=== PATIENT | male | born 1970 | race Caucasian/White ===

== ENCOUNTER 2017-09-11 17:18 | Emergency (ER) | payer OTHER ==
[2017-09-11] MEDS ORDERED: Lidocaine 2% 5 ML SDV ONE (17:29)
[2017-09-11] MEDS ORDERED: Diphtheria,Pertussis(Acell),Tetanus Vaccine 0.5 ML SDV IM ONE (17:36)
[2017-09-11] MEDS ORDERED: Lidocaine 1% 20 ML MDV ONE (17:41)
--- NOTE | 2017-09-11 17:57 | EDM.PDOC ---
ED HPI GENERAL MEDICAL PROBLEM - General Chief Complaint: Skin Complaint Stated Complaint: right middle finger laceration Time Seen by Provider: 09/11/17 17:30 Source of Information: Reports: Patient History Limitations: Reports: No Limitations - History of Present Illness INITIAL COMMENTS - FREE TEXT/NARRATIVE: 46 YO WM presents to ER with 3 cm laceration to right middle finger at [facility]. Pt reports he accidentally cut his hand on a sharp piece of metal flashing. Pt denies any other injury. Bleeding controlled. Pt unsure of tetanus status. Onset Date: 09/11/17 Onset Time: 16:55 Duration: Hour(s): (1) Location: Reports: Upper Extremity, Right Severity: Mild Improves with: Reports: None Worsens with: Reports: None Associated Symptoms: Reports: No Other Symptoms - Related Data Allergies Allergy/AdvReac Type Severity Reaction Status Date / Time No Known Drug Allergies Allergy Cannot Verified 09/11/17 17:35 Remember Home Meds: Home Meds . [No Known Home Meds] 09/11/17 [History] ED ROS GENERAL - Review of Systems Review Of Systems: See Below Constitutional: Reports: No Symptoms HEENT: Reports: No Symptoms Respiratory: Reports: No Symptoms Cardiovascular: Reports: No Symptoms Endocrine: Reports: No Symptoms GI/Abdominal: Reports: No Symptoms : Reports: No Symptoms Musculoskeletal: Reports: No Symptoms Skin: Reports: Wound (3cm laceration to right middle finger) Neurological: Reports: No Symptoms Psychiatric: Reports: No Symptoms Hematologic/Lymphatic: Reports: No Symptoms Immunologic: Reports: No Symptoms ED EXAM, SKIN/RASH Exam: See Below Exam Limited By: No Limitations General Appearance: Alert, WD/WN, No Apparent Distress Ears: Normal External Exam, Normal Canal, Hearing Grossly Normal, Normal TMs Nose: Normal Inspection, Normal Mucosa, No Blood Throat/Mouth: Normal Inspection, Normal Lips, Normal Teeth, Normal Gums, Normal Oropharynx, Normal Voice, No Airway Compromise Head: Atraumatic, Normocephalic Neck: Normal Inspection, Supple, Non-Tender, Full Range of Motion Respiratory/Chest: No Respiratory Distress, Lungs Clear, Normal Breath Sounds, No Accessory Muscle Use, Chest Non-Tender Cardiovascular: Normal Peripheral Pulses, Regular Rate, Rhythm, No Edema, No Gallop, No JVD, No Murmur, No Rub GI/Abdominal: Normal Bowel Sounds, Soft, Non-Tender, No Organomegaly, No Distention, No Abnormal Bruit, No Mass Back Exam: Normal Inspection, Full Range of Motion, NT Extremities: Normal Inspection, Normal Range of Motion, Non-Tender, No Pedal Edema, Normal Capillary Refill Neurological: Alert, Oriented, CN II-XII Intact, Normal Cognition, Normal Gait, Normal Reflexes, No Motor/Sensory Deficits Psychiatric: Normal Affect, Normal Mood Skin: Wound/Incision (3cm laceration to right middle finger) Location, Skin: Lower Extremity, Right Lymphatic: No Adenopathy ED SKIN PROCEDURES - Laceration/Wound Repair Right Middle Midline Finger Lac/Wound length In cm: 3 Appearance: Superficial, Clean Distal NVT: Neuro & Vascular Intact Anesthetic Type: Digital Local Anesthesia - Lidocaine (Xylocaine): 1% Plain Local Anesthetic Volume: Other (10cc) Saline Irrigation (cc's): 10 Exploration/Debridement/Repair: Wound Explored Closed with: Sutures Suture Size: other (5-0) # of Sutures: 4 Sterile Dressing Applied: Nurse Tetanus Status Addressed: Yes Complications: No Course - Vital Signs Last Recorded V/S: Last Vital Signs Temp 36.6 C 09/11/17 17:38 Pulse 81 09/11/17 17:38 Resp 20 09/11/17 17:38 BP 144/83 H 09/11/17 17:38 Pulse Ox 97 09/11/17 17:38 - Orders/Labs/Meds Orders: Active Orders 24 hr Category Date Time Status Vaccines to be Administered [RC] PER UNIT ROUTINE Care 09/11/17 17:37 Active Meds: Medications Discontinued Medications Generic Name Dose Route Start Last Admin Trade Name Rachel PRN Reason Stop Dose Admin Diphtheria/Tetanus/Acell Pertussis 0.5 ml 09/11/17 17:36 Adacel IM 09/11/17 17:37 .ONCE ONE Lidocaine Confirm 09/11/17 17:29 Xylocaine-Mpf 2% Administered 09/11/17 17:30 Dose 5 ml .ROUTE .STK-MED ONE Lidocaine HCl Confirm 09/11/17 17:41 Xylocaine 1% Administered 09/11/17 17:42 Dose 20 ml .ROUTE .STK-MED ONE Departure - Departure Time of Disposition: 17:59 Disposition: Home, Self-Care 01 Condition: Good Clinical Impression: Finger laceration Qualifiers: Encounter type: initial encounter Finger: middle finger Damage to nail status: without damage Foreign body presence: without foreign body Laterality: right Qualified Code(s): S61.212A - Laceration without foreign body of right middle finger without damage to nail, initial encounter - Discharge Information Instructions: Suture Removal, Care After, Laceration Care, Adult, [id number] Referrals: Cliff Rodriguez MD [Primary Care Provider] - - My Orders Last 24 Hours: My Active Orders 09/11/17 17:37 Vaccines to be Administered [RC] PER UNIT ROUTINE - Assessment/Plan Last 24 Hours: My Active Orders 09/11/17 17:37 Vaccines to be Administered [RC] PER UNIT ROUTINE Assessment:: 1. 3cm laceration to right middle finger Plan: 1. discharge home 2. wound care instructions 3. suture removal 10-14 days 4. return to ER for worsening symptoms
== END 2017-09-11 20:29 | disposition home or self-care (01) ==
LOC: KA.ED 17:18
DX: S61.212A Laceration without foreign body of right middle finger without damage to nail, initial encounter (principal); Z23 Encounter for immunization; W45.0XXA Nail entering through skin, initial encounter
CPT/HCPCS: 12002; 90471; 90715; 99283